=== PATIENT | female | born 1970 | race African-American/Black ===

== ENCOUNTER 2018-10-27 12:17 | Emergency (ER) | payer OTHER ==
[~2018-10-27] VITALS: Ht 175.3 cm; Wt 56.7 kg
[2018-10-27] MEDS ORDERED: VALACYCLOVIR1000 MG PO (13:01)
[2018-10-27] MEDS ORDERED: HYDROCODONE-AP1 EAC6 PO (13:01)
[2018-10-27 13:10] VITALS: BP 129/76
== END 2018-10-27 13:10 | disposition home or self-care (01) ==
LOC: ER 12:17
DX: B02.9 Zoster without complications (principal); F17.210 Nicotine dependence, cigarettes, uncomplicated; E03.9 Hypothyroidism, unspecified